=== PATIENT | female | born 1980 | race Caucasian/White ===

== ENCOUNTER 2017-01-12 08:11 | Inpatient (IN) | payer OTHER ==
[~2017-01-12] VITALS: Ht 162.6 cm; Wt 95.0 kg
[~2017-01-12 08:11] MED LIST: ACYC200C2 PO; PREN1TAB49 PO
[2017-01-12 08:19] VITALS: Ht 162.6 cm; Wt 95.0 kg
[2017-01-12 08:25] VITALS: BP 116/64; PULSE 126; RESP 18
--- NOTE | 2017-01-12 08:44 | TRIAGE ---
OB Triage Datetime Report Generated by CPN: 01/12/2017 08:43 Datetime: 01/12/2017 08:27 Vaginal Exam Dilatation (cms): 2.5 Effacement (%): 70 Station: -2 Exam By: MARY Vaginal Bleeding: None Cervix, Consistency: Moderate Cervix, Position: Midposition Presentation 'A': Cephalic Datetime: 01/12/2017 08:25 Assessment Type: Triage Maternal Assessment Level of Consciousness: Fully Conscious DTR's/Clonus: DTRs 2+; No Clonus Headache: Denies Blurred Vision: No Respiratory Effort: Unlabored; Regular Rhythm Breath Sounds, Left: Clear and Equal Breath Sounds, Right: Clear and Equal Nausea/Vomiting: Denies RUQ Epigastric Pain: Denies Lower Extremities Edema: None Degree: None Upper Extremities Edema: None Degree: None Facial Edema: None Fall Risk Assessment History of Falling: (0) No Secondary Diagnosis: (0) No Ambulatory Aid: (0) Bedrest/Nurse Assist IV Therapy: (0) No Gait: (0) Normal/Bedrest/Immobile Mental Status: (0) Oriented to Own Ability Fall Score: 0 Fall Risk Score Definition: No Risk: No action required Datetime: 01/12/2017 08:23 Pain Assessment Pain Scale: 2 Pain Presence: Intermittent Pain Type: Cramping; Contraction Pain Location: Abdomen Pain Relief Measures: Comfort Measures Datetime: 01/12/2017 08:22 Labor Evaluation Monitor Mode: External Heart Rate Monitor Mode: External US Datetime: 01/12/2017 08:21 EGA: 40.4 Datetime: 01/12/2017 08:20 Time of Arrival: 01/12/2017 08:09 Arrived By: Ambulatory Arrived From: Home Chief Complaint: PT PRESENTS TO TRIAGE COMPLAINING OF CONTRACTIONS SINCE YESTERDAY Movement: Decreased Contractions: Irregular Time Contractions Began: 01/11/2017 23:00 Rupture of Membranes: Denies Vaginal Bleeding: None Vaginal Discharge: Denies Recent Sexual Intercouse: Denies Abdominal Trauma: Not Applicable Patient Complaints: Contractions Time Provider Notified: 01/12/2017 08:40 Provider Notified: SHERRELL Initial Plan: FAMILIA/FLOYD
[2017-01-12] MEDS ORDERED: OXYCODONE/ASPIRIN (4.88/325) TAB PO PRN (09:00)
[2017-01-12] MEDS ORDERED: METHYLERGONOVINE 0.2 MG INJ IM PRN (09:00)
[2017-01-12] MEDS ORDERED: IBUPROFEN 600 MG TAB PO PRN (09:00)
[2017-01-12] MEDS ORDERED: LIDOCAINE 1% (MPF) 30 ML INJ INJ PRN (09:00)
[2017-01-12] MEDS ORDERED: LACTATED RINGER'S 1,000 ML IV PRN (09:00)
[2017-01-12] MEDS ORDERED: BUTORPHANOL 2 MG INJ IV PRN (09:00)
[2017-01-12] MEDS ORDERED: OXYTOCIN 30 UNITS/LR 500 ML IV PRN (09:00)
[2017-01-12] MEDS ORDERED: OXYTOCIN 30 UNITS/LR 500 ML IV SCH ×2 (09:00)
[2017-01-12] MEDS ORDERED: MISOPROSTOL 200 MCG TAB PR PRN (09:00)
[2017-01-12] MEDS ORDERED: CARBOPROST 250 MCG INJ IM PRN (09:00)
[2017-01-12] MEDS: LACTATED RINGER'S 1,000 ML IV SCH ×2 (10:10→18:24)
[2017-01-12 10:29] LABS: ADD SCAN DIFF NO
[2017-01-12 10:49] LABS: BASOPHILS % 0.1 % (0.0-2.0); EOSINOPHILS % 0.3 % (0.0-7.0); HEMATOCRIT 42.5 % (37.0-47.0); HEMOGLOBIN 13.9 g/dl (12.0-16.0); LYMPHOCYTES # 2.3 10^3/ul (0.8-2.9); LYMPHOCYTES % 19.5 % (15.0-51.0); MEAN CORPUSCULAR HEMOGLOBIN 31.3 pg (29.0-33.0); MEAN CORPUSCULAR HGB CONC 32.7 g/dl (32.0-37.0); MEAN CORPUSCULAR VOLUME 95.7 fl (82.0-101.0); MEAN PLATELET VOLUME 10.9 fl (7.4-10.4); MONOCYTE # 0.7 10^3/ul (0.3-0.9); MONOCYTES % 6.2 % (0.0-11.0); NEUTROPHIL # 8.6 10^3/ul (1.6-7.5); NEUTROPHILS % 73.5 % (39.0-77.0); PLATELET COUNT 227 10^3/UL (140-415); RED BLOOD COUNT 4.44 10^6/ul (4.20-5.40); RED CELL DISTRIBUTION WIDTH 14.1 % (11.5-14.5); WHITE BLOOD COUNT 11.7 10^3/ul (4.8-10.8)
--- NOTE | 2017-01-12 11:10 | RADRPT ---
PROCEDURE: US OB. CLINICAL INDICATION: Size and dates , pelvic contraction TECHNIQUE: Multiple sonographic images of the pelvis and gravid uterus were obtained. The images were reviewed on a PACS workstation. COMPARISON: No prior studies are available for comparison. FINDINGS: There is a single viable intrauterine gestation. Cardiac activity is present with 125 beats per min abdiel. There is a vertex presentation. The placenta is anterior. There is no evidence for an abruption or placenta previa. There is a normal amount of amniotic fluid with an IVAN = 8.5 cm. Measurements were made in order to determine age. The results are as follows: BPD =9.2 cm HC =32.9 cm AC =35.9 cm FL =7.4 cm Estimated gestational age of approximately 38 weeks and 1 day based on ultrasound measurements. Clinical age: 40 weeks and 4 days. The estimated date of delivery is 01/25/17, based on ultrasound measurements. The EFW = 3593 g, 39.6%, based on LMP age. RPTAT: AA IMPRESSION: Single viable intrauterine gestation of approximately 38 weeks and 1 day based on ultrasound measur ements. Smaller than clinical age by 2.5 weeks. .Sony High MD, Date Time Electronically viewed and signed by .Sony High MD, MD on 01/12/2017 11:09 .S/
--- NOTE | 2017-01-12 11:13 | RADRPT ---
PROCEDURE: US OB biophysical profile. CLINICAL INDICATION: decreased movements, contraction TECHNIQUE: Multiple sonographic images of the pelvis were obtained. The images were reviewed on a PACS workstation. COMPARISON: No prior studies are available for comparison. FINDINGS: There is a single viable intrauterine gestation. Cardiac activity is present with 129 beats per milton te. There is a vertex presentation. There is a nuchal cord visualized. The placenta is anterior. There is no evidence for an abruption or placenta previa. There is a normal amount of amniotic fluid with an IVAN = 8.5 cm. Biophysical profile: movement 2/2 tone 2/2. breathing 2/2 IVAN 2/2 Total 05/15 RPTAT: AA . IMPRESSION: Normal biophysical profile. Evidence of a nuchal cord. . .Sony High MD, Date Time Electronically viewed and signed by .Sony High MD, MD on 01/12/2017 11:13 .S/
[2017-01-12] MEDS: OXYTOCIN 30 UNITS/LR 500 ML IV SCH (11:14)
[2017-01-12 11:26] LABS: INR 0.96; PARTIAL THROMBOPLASTIN TIME 28.8 Sec (25.0-35.0); PROTIME 12.8 Sec (12.2-14.2)
[2017-01-12] MEDS: ACYCLOVIR 200 MG CAP PO SCH (21:07)
[2017-01-13] MEDS: LACTATED RINGER'S 1,000 ML IV SCH ×3 (02:41→09:18)
[2017-01-13] MEDS ORDERED: FENTAnyl 2MCG/ML-ROPIV 0.2% 100 ML ONE (06:55)
[2017-01-13] MEDS ORDERED: NALOXONE (0.4 MG/ML) INJ IV PRN (07:30)
[2017-01-13] MEDS ORDERED: FENTAnyl 2MCG/ML-ROPIV 0.2% 100 ML BAG EPI SCH (07:30)
[2017-01-13] MEDS: ACYCLOVIR 200 MG CAP PO SCH ×2 (09:17→21:22)
[2017-01-13] MEDS: OXYTOCIN 30 UNITS/LR 500 ML IV SCH (10:50)
[2017-01-13] MEDS ORDERED: OXYTOCIN 30 UNITS/LR 500 ML IV SCH ×2 (11:00→17:25)
[2017-01-13] MEDS ORDERED: ACETAMINOPHEN 325 MG TAB PO ONE (16:00)
[2017-01-13] MEDS ORDERED: OXYTOCIN 30 UNITS/LR 500 ML IV PRN (17:30)
[2017-01-13] MEDS ORDERED: OXYCODONE/ASPIRIN (4.88/325) TAB PO PRN (17:30)
[2017-01-13] MEDS ORDERED: CARBOPROST 250 MCG INJ IM PRN (17:30)
[2017-01-13] MEDS ORDERED: MISOPROSTOL 200 MCG TAB PR PRN (17:30)
[2017-01-13] MEDS ORDERED: LANOLIN 7 GM TUBE TOP PRN (17:30)
[2017-01-13] MEDS ORDERED: METHYLERGONOVINE 0.2 MG INJ IM PRN (17:30)
--- NOTE | 2017-01-13 17:31 | LDN ---
Date/Time of Note Date/Time of Note DATE: 01/13/17 TIME: 17:28 Delivery Summary of a viable baby boy weighing 4315 grams or 9# 8oz, 20.25" long, and with Apgars of 9/9. Weeks of Gestation 40w 1d. Placenta Delivered: Spontaneously Meconium: none Episiotomy: No Perineal laceration: 1 Laceration repair: 1st dgree perineal laceration repaired with 2-0 chromic. Anesthesia type: Epidural Estimated blood loss: 400 Sponge & Needle done & correct: Yes All needle counts correct: Yes Any foreign bodies felt in the: No (vagina) Problems: Delivery Information Sex Sex: male Apgars 1 Minute: 9 5 Minute: 9 Suctioning Nose & mouth suctioned at britt: Yes Delee suction performed: No Umbilical Cord Umbilical cord with: 3 Vessels Cord presentations: nuchal cord Nuchal cord present X: 1 Cord Blood was obtained: Yes Mother & Baby Disposition Disposition Mom & Baby to Maternity; Good: Yes Baby to NICU: No DARRYL ROMO MD Jan 13, 2017 17:31
--- NOTE | 2017-01-13 17:37 | HP ---
Date/Time of Note Date/Time of Note DATE: 01/13/17 TIME: 17:31 OB - History Hx of Present Free Text/Dictation 36 y.o. A1 with an IUP at 40w 1d came in labor yesterday morning at 0800 and was 70%/2-3cm/-2 with an EFW of 3600 grams.Was kept for augmentation. Chief Complaint: Labor. Estimated Due Date: Jan 08, 2017 Para: 6 Spontaneous : 4 Therapeutic : 1 Care: Good Care Ultrasounds: Normal mid trimester US Obstetrical Complications: None Medical Complications: Other (H/O herpes.) Past Family/Social History * Past Medical, Surgical, Family and Obstetric Histories reviewed from chart. Blood Type: A+ Rubella: immune RPR/VDRL: Negative GBS Status: Negative HBsAG: Negative OB Admission Exam Vital Signs Vital Signs Vital Signs Date Time Temp Pulse Resp B/P Pulse Ox O2 Delivery O2 Flow Rate FiO2 01/12/17 08:25 98.0 126 18 116/64 Room Air Physical Exam HEENT: WNL Heart: Rhythm Normal Lungs: Clear Abdomen: WNL Extremities: Edema Reflexes: Normal Cervical Dilatation: 3cm Effacement: 75% Station: -2 Membranes: Intact Amniotic Fluid: Clear Heart Rate: 150's Accelerations: Accelerations Present Decelerations: No Decelerations Varibility: Moderate Contractions on Admission: < 5 Minutes Apart Last 72 hours Lab Results CBC & BMP 01/12/17 10:20 OB Assessment/Plan Reason for admission: active labor Other Assessment: Postdates. Macrosomia. Plan: Other (Augmentation.) Induction Method: per Pitocin Protocol DARRYL ROMO MD Jan 13, 2017 17:37
[2017-01-13] MEDS: IBUPROFEN 600 MG TAB PO SCH ×2 (17:46→23:36)
[2017-01-13 18:30] VITALS: BP 109/58; PULSE 93; RESP 18
[2017-01-13 20:00] VITALS: BP 120/64; PULSE 96; RESP 18
[2017-01-14] VITALS: BP 106/50; PULSE 96; RESP 18
[2017-01-14] MEDS: LACTATED RINGER'S 1,000 ML IV* SCH ×3 (01:25→21:40)
[2017-01-14 04:00] VITALS: BP 112/55; PULSE 92; RESP 18
[2017-01-14] MEDS: IBUPROFEN 600 MG TAB PO SCH ×4 (06:01→23:19)
[2017-01-14 08:00] VITALS: BP 112/67; PULSE 87; RESP 18
[2017-01-14 08:11] LABS: ADD SCAN DIFF NO
[2017-01-14 08:18] LABS: BASOPHILS % 0.2 % (0.0-2.0); EOSINOPHILS % 0.2 % (0.0-7.0); HEMATOCRIT 32.1 % (37.0-47.0); HEMOGLOBIN 10.9 g/dl (12.0-16.0); LYMPHOCYTES # 2.3 10^3/ul (0.8-2.9); LYMPHOCYTES % 19.6 % (15.0-51.0); MEAN CORPUSCULAR HEMOGLOBIN 32.6 pg (29.0-33.0); MEAN CORPUSCULAR VOLUME 96.1 fl (82.0-101.0); MEAN PLATELET VOLUME 11.3 fl (7.4-10.4); MONOCYTE # 0.7 10^3/ul (0.3-0.9); MONOCYTES % 6.1 % (0.0-11.0); NEUTROPHIL # 8.5 10^3/ul (1.6-7.5); NEUTROPHILS % 73.4 % (39.0-77.0); PLATELET COUNT 189 10^3/UL (140-415); RED BLOOD COUNT 3.34 10^6/ul (4.20-5.40); RED CELL DISTRIBUTION WIDTH 14.2 % (11.5-14.5); WHITE BLOOD COUNT 11.6 10^3/ul (4.8-10.8)
[2017-01-14] MEDS: ACYCLOVIR 200 MG CAP PO SCH ×2 (09:06→21:38)
[2017-01-14 16:00] VITALS: BP 106/62; PULSE 92; RESP 18
--- NOTE | 2017-01-14 16:58 | PN ---
Date/Time of Note Date/Time of Note DATE: 01/14/17 TIME: 16:57 OB Subjective Subjective Subjective day 1 Afebrile vital signs stable, abdomen soft uterus firm lochia normal extremity normal Laboratory Tests Test 01/14/17 07:10 White Blood Count 11.610^3/ul Red Blood Count 3.3410^6/ul Hemoglobin 10.9g/dl Hematocrit 32.1% Mean Corpuscular Volume 96.1fl Mean Corpuscular Hemoglobin 32.6pg Mean Corpuscular Hemoglobin Concent 34.0g/dl Red Cell Distribution Width 14.2% Platelet Count 08257^3/UL Mean Platelet Volume 11.3fl Neutrophils % 73.4% Lymphocytes % 19.6% Monocytes % 6.1% Eosinophils % 0.2% Basophils % 0.2% Nucleated Red Blood Cells % 0.0/100WBC Neutrophils # 8.510^3/ul Lymphocytes # 2.310^3/ul Monocytes # 0.710^3/ul Eosinophils # 0.010^3/ul Basophils # 0.010^3/ul Nucleated Red Blood Cells # 0.010^3/ul Current Medications Medications (Trade) Dose Ordered Sig/[place] Route PRN Reason Start Time Stop Time Status Last Admin Dose Admin Lactated Ringer's 1,000 ml @ 125 mls/hr Q8H IV 01/12/17 08:44 01/13/17 17:28 DC 01/13/17 09:18 Oxytocin/Lactated Ringer's 500 ml @ 0 mls/hr TITRATE IV 01/12/17 09:00 01/13/17 17:28 DC 01/13/17 10:50 Butorphanol Tartrate (Stadol) 2 mg Q2H PRN IV PAIN 01/12/17 09:00 01/13/17 17:28 DC Lidocaine 30 ml 30 ml ONCE PRN INJ EPISIOTOMY/TEARING 01/12/17 09:00 01/13/17 17:28 DC Oxytocin/Lactated Ringer's 500 ml @ 125 mls/hr ONCE -MAY REPEAT X1 IV 01/12/17 09:00 01/13/17 17:28 DC Oxytocin/Lactated Ringer's 500 ml @ 125 mls/hr ONCE IV 01/12/17 09:00 01/13/17 17:28 DC Ibuprofen (Motrin) 600 mg ONCE PRN PO Mild Pain (Pain Score 1-3) 01/12/17 09:00 01/13/17 17:29 DC Oxycodone/Aspirin 2 tab 2 tab ONCE PRN PO Moderate to Severe Pain (4-10) 01/12/17 09:00 01/13/17 17:29 DC Lactated Ringer's 1,000 ml @ 20 mls/hr Q24H PRN IV PRE-EPIDURAL BOLUS 01/12/17 09:00 01/13/17 17:29 DC Oxytocin/Lactated Ringer's 500 ml @ 0 mls/hr ONCE PRN IV For Hemorrhage Management 01/12/17 09:00 01/13/17 17:29 DC Methylergonovine Maleate (Methergine) 0.2 mg ONCE PRN IM VAGINAL BLEEDING 01/12/17 09:00 01/13/17 17:29 DC Carboprost Tromethamine (Hemabate) 250 mcg ONCE PRN IM VAGINAL BLEEDING 01/12/17 09:00 01/13/17 17:29 DC Misoprostol (Cytotec) 1,000 mcg ONCE PRN LA VAGINAL BLEEDING 01/12/17 09:00 01/13/17 17:29 DC Acyclovir 200 mg 200 mg BID PO 01/12/17 21:00 01/13/17 17:28 DC 01/13/17 09:17 Fentanyl/ Ropivacaine 100 ml @ ud STK-MED ONCE .ROUTE 01/13/17 06:55 01/13/17 06:56 DC Naloxone HCl (Narcan) 0.2 mg Q2M PRN IV FOR RESP RATE 8 OR LESS 01/13/17 07:30 01/13/17 17:28 DC Fentanyl/ Ropivacaine 100 ml 100 ml EPIDURAL (PCEA) EPI 01/13/17 07:30 01/13/17 17:29 DC 01/13/17 15:28 Oxytocin/Lactated Ringer's 500 ml @ 0 mls/hr TITRATE IV 01/13/17 11:00 01/13/17 17:28 DC Acetaminophen 650 mg 650 mg ONCE ONCE PO 01/13/17 16:00 01/13/17 16:01 DC 01/13/17 15:54 Oxytocin/Lactated Ringer's 500 ml @ 125 mls/hr Q4H IV 01/13/17 17:25 01/14/17 01:24 DC 01/13/17 21:32 Lactated Ringer's (Lr) 1,000 ml @ 125 mls/hr Q8H IV* 01/13/17 17:25 Ibuprofen (Motrin) 600 mg Q6 PO 01/13/17 18:00 01/14/17 16:04 Oxycodone/Aspirin (Percodan) 1 tab Q3H PRN PO PAIN LEVEL 1-5 01/13/17 17:30 Lanolin (Oom-E-Sfiplb) 1 applic BEDSIDE MEDICATION PRN TOP BEDSIDE FOR MARISOL TO NIPPLES 01/13/17 17:30 01/13/17 23:36 Diphtheria/ Tetanus/Acell Pertussis 0.5 ml 0.5 ml ONCE ONCE IM* 01/15/17 09:00 01/15/17 09:01 Oxytocin/Lactated Ringer's 500 ml @ 0 mls/hr ONCE PRN IV For Hemorrhage Management 01/13/17 17:30 01/13/17 17:45 Methylergonovine Maleate (Methergine) 0.2 mg ONCE PRN IM VAGINAL BLEEDING 01/13/17 17:30 Carboprost Tromethamine (Hemabate) 250 mcg ONCE PRN IM VAGINAL BLEEDING 01/13/17 17:30 Misoprostol (Cytotec) 1,000 mcg ONCE PRN LA VAGINAL BLEEDING 01/13/17 17:30 Acyclovir (Zovirax) 200 mg BID PO 01/13/17 21:00 01/14/17 09:06 JEREMY WYNNE MD Jan 14, 2017 16:58
[2017-01-14 19:45] VITALS: BP 104/56; PULSE 87; RESP 19
[2017-01-14] MEDS ORDERED: WITCH HAZEL/GLYCERIN PAD PR PRN (22:00)
[2017-01-14] MEDS ORDERED: BENZOCAINE 20% 56 ML SPRAY TOP PRN (22:00)
[2017-01-15] MEDS: LACTATED RINGER'S 1,000 ML IV* SCH ×2 (01:25→09:25)
[2017-01-15 03:45] VITALS: BP 114/69; PULSE 89; RESP 19
[2017-01-15] MEDS: IBUPROFEN 600 MG TAB PO SCH ×2 (05:49→12:05)
[2017-01-15 08:30] VITALS: BP 109/55; PULSE 77; RESP 19
[2017-01-15] MEDS ORDERED: DIPHTH/TET/ACEL PERTUSS (ADULT) 0.5 ML VIAL IM* ONE (09:00)
[2017-01-15] MEDS: ACYCLOVIR 200 MG CAP PO SCH (09:54)
--- NOTE | 2017-01-15 11:45 | DS ---
Date/Time of Note Date/Time of Note DATE: 01/15/17 TIME: 11:45 Obstetrical Discharge Record Final Diagnosis Final Diagnosis: Term delivered Vaginal Delivery Obstetrical Delivery: Spontaneous Condition on Discharge Physical Assessment Voiding: Yes Bowel Movement: Yes Breast: Soft, non-tender Fundus: Firm Patient Condition: Stable CHAPIS BLACK MD Jan 15, 2017 11:45
== END 2017-01-15 15:10 | disposition home or self-care (01) | DRG 775 ==
LOC: OBT 08:11 → L-D 08:11 → OBT 08:50 → L-D 08:56 → PP1 01-13 18:29
PROVIDERS: ADMIT Obstetrics & Gynecology; ATTEND Obstetrics & Gynecology
PROC: 4A1HX4Z Monitoring of Products of Conception, Cardiac Electrical Activity, External Approach (ICD-10-PCS; 2017-01-12)
PROC: 10E0XZZ Delivery of Products of Conception, External Approach (ICD-10-PCS; principal; 2017-01-13)
PROC: 0HQ9XZZ Repair Perineum Skin, External Approach (ICD-10-PCS; 2017-01-13)
PROC: 3E0234Z Introduction of Serum, Toxoid and Vaccine into Muscle, Percutaneous Approach (ICD-10-PCS; 2017-01-15)
DX: O48.0 Post-term pregnancy (principal); O36.63X0 Maternal care for excessive fetal growth, third trimester, not applicable or unspecified; O69.1XX0 Labor and delivery complicated by cord around neck, with compression, not applicable or unspecified; Z3A.40 40 weeks gestation of pregnancy; Z37.0 Single live birth; Z23 Encounter for immunization
CPT/HCPCS: 62319; 76815; 76818; 85025; 85610; 85730; 86592; 86900; 86901; 87340; 90715; C1751; G0463; J2590; J3010; J7120